=== PATIENT | female | born 1950 | race Caucasian/White ===

== ENCOUNTER → 2017-03-22 | Outpatient (CLI) | payer MEDICARE, OTHER | LOC: EMI 15:57 | DX: M41.84 Other forms of scoliosis, thoracic region (principal); M41.85 Other forms of scoliosis, thoracolumbar region ==

== ENCOUNTER 2021-08-27 17:05 | Emergency (ER) | payer OTHER ==
[2021-08-27 18:20] LABS: HEMOGLOBIN 9.6 gm/dl (12.3-15.3); RED BLOOD COUNT 3.14 M/UL (4.00-5.10); WHITE BLOOD COUNT 5.5 K/UL (4.5-11.0)
== END 2021-08-27 21:20 | disposition home or self-care (01) ==
LOC: ER1 17:05
PROVIDERS: Nurse Practitioner
DX: U07.1 COVID-19 (principal); R53.1 Weakness; E11.9 Type 2 diabetes mellitus without complications; E78.5 Hyperlipidemia, unspecified; N18.9 Chronic kidney disease, unspecified; D64.9 Anemia, unspecified; R10.9 Unspecified abdominal pain; Z99.81 Dependence on supplemental oxygen; E11.22 Type 2 diabetes mellitus with diabetic chronic kidney disease; I12.9 Hypertensive chronic kidney disease with stage 1 through stage 4 chronic kidney disease, or unspecified chronic kidney disease
CPT/HCPCS: 36600; 71045; 80053; 81001; 82150; 82550; 82553; 82803; 83605; 83690; 83874; 83880; 84484; 85025; 85610; 86140; 87040; 87086; 93005; 99285; Q9967; U0002

== ENCOUNTER 2021-08-29 18:06 | Emergency (ER) | payer OTHER ==
[2021-08-29 19:47] LABS: HEMOGLOBIN 9.6 gm/dl (12.3-15.3); RED BLOOD COUNT 3.17 M/UL (4.00-5.10)
== END 2021-08-30 02:00 | disposition home or self-care (01) ==
LOC: ER1 18:06
PROVIDERS: Student in an Organized Health Care Education/Training Program
DX: N93.9 Abnormal uterine and vaginal bleeding, unspecified (principal); R93.89 Abnormal findings on diagnostic imaging of other specified body structures; E11.9 Type 2 diabetes mellitus without complications; I10 Essential (primary) hypertension; Z88.8 Allergy status to other drugs, medicaments and biological substances
CPT/HCPCS: 76830; 80048; 81001; 85025; 86850; 86900; 86901; 99284